=== PATIENT | male | born 1955 | race Caucasian/White ===

== ENCOUNTER → 2018-06-07 | Outpatient (CLI) | payer MEDICARE | END | disposition home or self-care (01) | LOC: PCVCCLINIC 15:55 | PROVIDERS: ATTEND Internal Medicine | DX: R93.1 Abnormal findings on diagnostic imaging of heart and coronary circulation (principal); I10 Essential (primary) hypertension; E11.9 Type 2 diabetes mellitus without complications; G45.9 Transient cerebral ischemic attack, unspecified; Z79.4 Long term (current) use of insulin | CPT/HCPCS: 93005; G0463 ==

== ENCOUNTER → 2018-06-09 | Outpatient (CLI) | payer MEDICARE ==
[~2018-06-09] MED LIST: REGADENOSON 0.4 MG/5 ML DISP.SYRIN. IV ONE
--- NOTE | 2018-06-09 12:31 | PCVCIMAG ---
APPROVED REPORT Laterality: Bilateral Indications CVA/TIA: Sensory Deficit, Doppler Spectral Velocity Analysis PSV / EDVPSV / EDV ECA (R) 73 / 10 cm/sECA (L) 75 / 13 cm/s dICA (R) 51 / 16 cm/sdICA (L) 68 / 28 cm/s Hawa (R) 74 / 27 cm/smICA (L) 82 / 29 cm/s pICA (R) 33 / 11 cm/spICA (L) 60 / 23 cm/s Bulb (R) 46 / 11 cm/sBulb (L) 54 / 16 cm/s dCCA (R) 64 / 12 cm/sdCCA (L) 56 / 18 cm/s mCCA (R) 74 / 14 cm/smCCA (L) 71 / 18 cm/s Vert (R) 40 / 12 cm/sVert (L) 42 / 15 cm/s ICA/CCA 1.16ICA/CCA 1.46 Findings The right carotid bulb has no significant plaque. The right proximal internal carotid artery shows no significant stenosis. The right common carotid artery shows no significant stenosis. The right external carotid artery shows no significant stenosis. The left carotid bulb has no significant plaque. The left proximal internal carotid artery shows no significant stenosis. The left common carotid artery shows no significant stenosis. The left external carotid artery shows no significant stenosis. Conclusion 1. No significant stenosis involving either carotid artery 2. Antegrade vertebral flow
--- NOTE | 2018-06-09 12:58 | PCVCIMAG ---
APPROVED REPORT Study performed: 06/09/2018 10:43:02 EXAM: Comprehensive 2D, Doppler, and color-flow Echocardiogram Patient Location: Echo lab Status: routine BSA: 2.19 HR: 98 bpmBP: 160/90 mmHg Rhythm: NSR Other Information Study Quality: Good Risk Factors: Cardiac Risk Factors: HTN, Hyperlipidemia, DM Indications Diabetes Hypertension/HDD Elevated calcium score, TIA 2D Dimensions IVSd: 12.96 (7-11mm)LVOT Diam: 22.24 (18-24mm) LVDd: 31.52 mm PWd: 11.58 (7-11mm)Ascending Ao: 34.37 (22-36mm) LVDs: 27.73 (25-40mm) Left Atrium: 38.35 (27-40mm) Aortic Root: 30.33 mm LV Single Plane 4CH: 52.23 % LV Single Plane 2CH: 53.18 % Biplane EF: 54.2 % Volumes Left Atrial Volume (Systole) Single Plane 4CH: 26.15 mLSingle Plane 2CH: 54.62 mL LA ESV Index: 19.00 mL/m2 Aortic Valve AoV Peak Rei.: 1.03 m/s AO Peak Gr.: 4.20 mmHgLVOT Max P.11 mmHg LVOT Max V: 0.88 m/s DEREK Vmax: 3.34 cm2 Mitral Valve E/A Ratio: 0.6 MV Decel. Time: 136.46 ms MV E Max Rei.: 0.42 m/s MV A Rei.: 0.68 m/s IVRT: 121.11 ms TDI E/Lateral E': 5.25E/Medial E': 7.00 Medial E' Rei.: 0.06 m/s Lateral E' Rei.: 0.08 m/s Pulmonary Valve PV Peak Gr.: 2.66 mmHg Pulmonary Vein P Vein S: 0.57 m/sP Vein A: 0.58 m/s P Vein D: 0.46 m/s P Vein S/D Ratio: 1.24 Left Ventricle The left ventricle is normal size. There is normal LV segmental wall motion. There is normal left ventricular wall thickness. Left ventricular systolic function is normal. The left ventricular ejection fraction is within the normal range. LVEF is 55-60%. The left ventricular diastolic function is normal. Right Ventricle The right ventricle is normal size. The right ventricular systolic function is normal. Atria The left atrium size is normal. The right atrium size is normal. Aortic Valve The aortic valve is normal in structure. No aortic regurgitation is present. There is no aortic valvular stenosis. Mitral Valve The mitral valve is normal in structure. There is no mitral valve regurgitation noted. No evidence of mitral valve stenosis. Tricuspid Valve The tricuspid valve is normal in structure. There is no tricuspid valve regurgitation noted. Pulmonic Valve The pulmonary valve is normal in structure. There is no pulmonic valvular regurgitation. Great Vessels The aortic root is normal in size. IVC is normal in size and collapses >50% with inspiration. Pericardium There is no pericardial effusion. <Conclusion> The left ventricle is normal size. LVEF is 55-60%. The aortic valve is normal in structure. The mitral valve is normal in structure. The tricuspid valve is normal in structure. The pulmonary valve is normal in structure. There is no pericardial effusion.
--- NOTE | 2018-06-10 10:14 | PCVCIMAG ---
APPROVED REPORT Imaging Protocol: Rest Tc-99m/Stress Tc-99m 1 day Study performed: 06/09/2018 12:57:57 Indication: CAD, High Ca Score Patient Location: Out-Patient Stress Nurse: Valeria Mireles RN, Rayna Turcios RN [place] Tech:[facility] Ht: 5 ft 11 in Wt: 222 lbs BSA: 2.20 m2 HR: 96 bpm BP: 143/85 mmHg BMI: 30.9 Rhythm: Normaml Sinus Rhythm Medical History Medical History: HTN, Hyperlipidemia, CVD, Diabetes Medications: Verapmil, Trandopril Allergies: No known drug allergies Cardiac Risk Factors: Age Pretest Chest Pain Characteristics: No chest pain Exercise History: Physically active Resting Data Rest SPECT myocardial perfusion imaging was performed in supine position 45 minutes following the intravenous injection of 11.4 mCi of Tc-99m Sestamibi. Time of rest injection: 1210 Date: 06/09/2018 Administration Route: IV Administration Site: Right Arm Pharmacologic Stress Pharmacologic stress test was performed by injecting Regadenoson 0.4 mg IV push over 10-15 seconds immediately followed by the intravenous injection of 34 mCi of Tc-99m Sestamibi. Time of stress injection: 1330 Date: 06/09/2018 Administration Route: IV Administration Site: Right Arm Gated Stress SPECT was performed 45 minutes after stress injection. The images were gated to evaluate regional wall motion and calculate left ventricular ejection fraction. Stress Test Details Stress Test: Pharmacologic stress testing performed using 0.4 mg of regadenoson per 5 mL given IV over 10 seconds. Reason for pharmacologic stress test: physical limitation. HRMax Heart Rate (APMHR): 155 bpm Resting HR: 96 bpmTarget HR (85% APMHR): 131 bpm Max HR Achieved: 109 bpm % of APMHR: 70 Recovery HR: 98 bpm BP Resting BP: 143/85 mmHg Max BP: 131/82 mmHg Recovery BP: 149/90 mmHg ECG Resting ECG: Normaml Sinus Rhythm Stress ECG: Sinus Tachycardia Recovery ECG: Normaml Sinus Rhythm Clinical Reason for Termination: Completed protocol Stress Symptoms: Dyspnea Exercise duration: 0 min 55 sec Symptoms resolved with caffeine. Stress ECG Conclusion 1. adequate response to iv lexiscan 2. inadequate heart rate response for ecg diagnosis Perfusion There is a large area of severely reduced uptake in the entire segment of the inferior wall which is seen on the stress images as well as the resting images. This area thickens and moves normally and is most consistent with attenuation artifact. Wall Motion Normal left ventricular wall motion. Nuclear Conclusion ECG Findings: non-diagnostic Clinical Findings: negative for ischemia Nuclear Findings: negative for ischemia Exercise Capacity: not assessed Left Ventricular Function: normal 1. low risk study Interpreted by: Padmaja Castaneda MD Electronically Approved: 06/10/2018 10:13:57 <Conclusion> 1. adequate response to iv lexiscan 2. inadequate heart rate response for ecg diagnosis
== END | disposition home or self-care (01) ==
LOC: PCVCIMAG 10:27
PROVIDERS: ATTEND Internal Medicine
DX: I65.23 Occlusion and stenosis of bilateral carotid arteries (principal); I10 Essential (primary) hypertension; R93.1 Abnormal findings on diagnostic imaging of heart and coronary circulation; E11.9 Type 2 diabetes mellitus without complications; I25.10 Atherosclerotic heart disease of native coronary artery without angina pectoris; Z79.4 Long term (current) use of insulin
CPT/HCPCS: 78452; 93017; 93306; 93880; A9500; J2785

== ENCOUNTER → 2018-12-05 | Outpatient (CLI) | payer MEDICARE | END | disposition home or self-care (01) | LOC: PCVCCLINIC 10:00 | PROVIDERS: ATTEND Internal Medicine | DX: I25.10 Atherosclerotic heart disease of native coronary artery without angina pectoris (principal); I10 Essential (primary) hypertension; E11.9 Type 2 diabetes mellitus without complications; Z79.4 Long term (current) use of insulin; Z79.82 Long term (current) use of aspirin | CPT/HCPCS: 93005; G0463 ==